=== PATIENT | female | born 1995 | race Caucasian/White ===

== ENCOUNTER 2024-08-28 15:24 | Emergency (ER) | payer MEDICAID, SELFPAY ==
[2024-08-28 15:31] VITALS: BP 128/90
[2024-08-28 15:35] VITALS: BP 130/88
--- NOTE | 2024-08-28 17:18 | ED.GENMED ---
History of Present Illness
General
Chief Complaint: Problems
Source: patient and spouse
Exam Limitations: none
Time Seen by Provider: 08/28/24 17:05
Nursing documentation reviewed up to this point in time: agreed with
History of Present Illness
History of Present Illness:
28-year-old female with no significant chronic medical issues presents to the emergency room accompanied by her for evaluation of vaginal bleeding and lower abdominal pain. Patient is notably 2-1/2 months out from complicated ; she
received her care in [place], recently moved to the area here. She gave to twins, delivered at 35 weeks via due to preeclampsia/HELLP syndrome. Delivery was complicated by hemorrhage (patient says of approximately 2L of
blood) and abnormal LFTs and hypertension�patient was admitted for 10 days postdelivery. Since discharge from the hospital patient says she has been doing well; she has not been on any medication for blood pressure. She is working to establish
care with PCP and [facility] here in the area has not yet seen anyone. She had her first menstrual period at the end of June and it was normal. She says that 2 days ago she started bleeding once again however bleeding has been much
heavier than usual. She says that she is saturating 1-2 tampons an hour over the past few days. She says she is also having bxar-nqztyoa-[id number]-typical lower abdominal cramping associated with current menstrual period. She says that she started to
feel dizzy and was concerned that she was losing too much blood especially in light of her recent complicated delivery and so she came to the emergency to be evaluated. She denies any chest pain or shortness of breath. She has not had any fever or
chills. She has not had any vomiting or any other issues.
Review of Systems
Review of Systems
All Other Systems: ROS reviewed and negative except as documented in HPI and ROS
Constitutional: Reports fatigue; Denies fever or chills
Respiratory: Denies cough or trouble breathing
Cardiac: Denies chest pain or palpitations
ABD/GI: Reports abdominal pain; Denies nausea or vomiting
: Reports bleeding; Denies flank pain
Musculoskeletal: Denies neck pain or back pain
Neurological: Reports dizzy and headache; Denies weakness or numbness
Phy Exam
Physical Exam
Physical Exam:
General: Awake, alert, oriented x3; no acute distress
Head: Normocephalic, atraumatic
Eyes: Conjunctiva normal, sclera anicteric
Throat: Airway intact, handling secretions
Neck: Trachea midline, supple without meningismus
Lungs: Clear to auscultation bilaterally, no wheezing, rales, rhonchi
Heart: Regular rate and rhythm, no murmurs, gallops, or rubs
Abd: Soft, non distended, tender to palpation suprapubic region
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
appreciated
Back: No CVA tenderness
Neuro: No gross deficit
Skin: no rash
Extremities: No edema in extremities, equal pulses in all extremities
Scores
Heart Failure Risk
Heart Failure Risk Score: Not Applicable
Heart Score for Chest Pain Patients
STEMI patient?: Not applicable
Withdrawal Assessment of Alcohol
Withdrawal Assessment Completed?: Not applicable
Course
Orders/Labs/Results
Orders:
Orders
08/28/24 17:18
US Pelvis Only (non-obstetric) Urgent
Reason For Exam: lower abd pain, vaginal bleeding
08/28/24 17:29
Type+Screen Urgent
Complete Blood Count/With Diff Urgent
Comprehensive Metabolic Panel Urgent
HCG, Beta Quantitative [Beta HCG Quantitative] Urgent
Is this a screen?: No
08/28/24 17:34
0.9% Sodium Chloride 1000 ml [Nss] 1,000 ml IV BOLUS
Acetaminophen [Tylenol] 1,000 mg PO NOW STA
08/28/24 21:20
Ketorolac [Toradol] 15 mg IV NOW STA
Abnormal Lab Results
08/28/24
17:29
Hct 36.7 L %
(37.0-47.0)
Absolute Monos (auto) 0.7 H 10^3/uL
(0.1-0.6)
Lymphocytes % 17.5 L %
(20.5-51.1)
Eosinophils % 6.9 H %
(0-6)
ALT 61 H U/L
(0-35)
08/28/24 17:29
08/28/24 17:29
Vital Signs
Initial and Last Documented VS:
Initial Vital Signs
Temp Pulse Resp BP Pulse Ox
36.8 C 85 16 128/90 99
08/28/24 15:31 08/28/24 15:31 08/28/24 15:31 08/28/24 15:31 08/28/24 15:31
Last Documented Vital Signs
Temp Pulse Resp BP Pulse Ox
36.8 C 75 16 122/83 99
08/28/24 15:31 08/28/24 18:00 08/28/24 17:31 08/28/24 18:00 08/28/24 15:35
Information
Weeks gestation: N/A
Location: N/A
MDM/Problems Addressed
Differential Diagnosis Includes:
Fibroid uterus, ectopic , miscarriage, dysfunctional menstrual bleeding
MDM/Problems Addressed:
28-year-old female presents for evaluation of vaginal bleeding abdominal cramping�she is currently in the midst of her second menstrual period since complicated delivery in May and is having heavier than usual bleeding and increased cramping
compared to normal. Vitals and exam as above. Will check labs including a CBC and a CMP, type and screen. Check an hCG. Will send for pelvic ultrasound. Monitor on telemetry and reassess after the above.
Labs reviewed: CBC unremarkable including normal hemoglobin of 12.5. CMP no clinically significant abnormalities. hCG negative. Pelvic ultrasound unremarkable. Vital stable throughout ER observation. Stable for discharge, referral to [facility] for
outpatient follow-up. Patient comfortable this plan. All questions answered.
*Radiology
Radiology exam reviewed: radiology read reviewed
*Pulse Oximetry
Patient hypoxic: no
*Critical Care Note
Total Time (30-74mins, 75-104mins- exclusive of procedures): Not Applicable
Data Reviewed
Source: patient and spouse
ED Attending Note
-
Portions of this chart may have been created with voice recognition software.� Occasional wrong word or��sound alike� substitutions may have occurred due to the inherent limitations of voice recognition software.
Discharge Plan
Departure
Patient Disposition: Home (Routine Discharge)
Date of Disposition: 08/28/24
Time of Disposition: 21:12
Patient with high blood pressure during this ER visit?: No
Discharge Problem:
Vaginal bleeding
Instructions: Heavy Periods ED
Referrals:
Marilin Sanchez MD [Family Provider] -
Tapan Nair MD [Active] - Call in 1-3 days for appt
Activity Restrictions/Additional Instructions:
Thank you for visiting the Emergency Department at [facility].
1. Please schedule a follow up appointment as directed. Call first thing tomorrow morning to make an appointment.
2. If indicated, please take your medications as instructed and indicated on discharge paperwork.
3. If any of your symptoms do not improve, or persist, or become more severe within 6-12 hours, please return to the emergency department for further care.
4. Please return to the emergency department if you develop a headache, neck pain/stiffness, fever greater than 100.4F, chest pain, shortness of breath, persistent nausea, vomiting, slurred speech, difficulty walking, numbness/tingling, weakness,
signs of infection or any other symptoms that are worrisome to you.
Please call [phone] if you have any questions.
Interventions
Interventions:
*Risk Screen - Suicide Last Done: 08/28/24 15:31
*General Assessment Last Done: 08/28/24 17:47
*Neglect/Abuse Screening Last Done: 08/28/24 15:31
ED- Fall Risk Assessment Last Done: 08/28/24 17:48
*ED COVID-19 Vaccine History Last Done: 08/28/24 17:47
*Nursing Disposition Last Done: 08/28/24 22:00
ED-Female Genitourinary Assessment Last Done: 08/28/24 17:48
Discharge Date and Time
Discharge Date/Time: 08/28/24 22:01
Print Language: KAZAKH
[2024-08-28 17:31] VITALS: BP 123/96
[2024-08-28 17:38] LABS: % Basophils 0.6 % (0-2); % Eosinophils 6.9 % (0-6); % Immature Granulocytes 0.1 % (0-0.5); % Lymphocytes 17.5 % (20.5-51.1); % Monocytes 8.7 % (1.7-9.3); % Neutrophils 66.2 % (42.2-75.2); Absolute Basophils 0.1 10^3/uL (0-0.2); Absolute Eosinophils 0.5 10^3/uL (0-0.7); Absolute Lymphocytes 1.4 10^3/uL (1.2-3.4); Absolute Monocytes 0.7 10^3/uL (0.1-0.6); Absolute Neutrophils 5.2 10^3/uL (1.4-6.5); Hematocrit 36.7 % (37.0-47.0); Hemoglobin 12.5 g/dL (12.0-16.0); Mean Corp Hgb Conc. 34.1 g/dL (33.0-37.0); Mean Corpuscular Hgb 27.7 pg (27.0-31.0); Mean Corpuscular Volume 81.2 fL (81.0-99.0); Mean Platelet Volume 9.9 fL (7.4-10.4); Nucleated Red Blood Cells % 0 %; Platelet Count 199 10^3/uL (130-400); Red Blood Cell Count 4.52 10^6/uL (4.20-5.40); Red Cell Dist. Width 14.5 % (11.5-14.5); White Blood Cell Count 7.8 10^3/uL (4.8-10.8)
[2024-08-28] MEDS: NSS 1000 IV (17:42)
[2024-08-28] MEDS: TYLENOL 1000 MG PO (17:43)
[2024-08-28 17:46] VITALS: BP 123/96; BMI 36.7
[2024-08-28 17:50] LABS: ALT (SGPT) 61 U/L (0-35); AST (SGOT) 28 U/L (14-36); Albumin 4.8 g/dl (3.5-5.0); Alkaline Phosphatase 62 U/L (38-126); Blood Urea Nitrogen 16 mg/dl (7-17); Calcium 9.5 mg/dl (8.4-10.2); Carbon Dioxide 27 mmol/L (22-30); Chloride 101 mmol/L (98-107); Estimated Creatinine Clearance > 125 ml/min; Glucose 85 mg/dl (70-99); Potassium 4.3 mmol/L (3.5-5.1); Sodium 143 mmol/L (135-145); Total Bilirubin 0.3 mg/dl (0.2-1.3); Total Protein 7.7 g/dl (6.3-8.2); eGFR > 60.00
[2024-08-28 18:00] VITALS: BP 122/83
[2024-08-28 18:06] LABS: Beta HCG Quantitative < 2.39 mIU/ml
[2024-08-28] MEDS: TORADOL 15 MG IV (21:31)
== END 2024-08-28 22:01 | disposition home or self-care (01) ==
LOC: EMR 15:24
PROVIDERS: EMERGENCY PHYSICIAN Emergency Medicine; FAMILY PHYSICIAN Hospitalist
DX: N93.9 Abnormal uterine and vaginal bleeding, unspecified (principal); R10.30 Lower abdominal pain, unspecified; R42 Dizziness and giddiness; R51.9 Headache, unspecified; R53.83 Other fatigue; Z88.0 Allergy status to penicillin
CPT/HCPCS: 99284; 96374; 96361; 76856; 80053; 84702; 85025; 86850; 86900; 86901

== ENCOUNTER → 2025-05-14 17:21 | Outpatient (REF) | payer OTHER, SELFPAY ==
[2025-05-14 18:06] LABS: Hematocrit 38.5 % (37.0-47.0); Hemoglobin 12.5 g/dL (12.0-16.0); Mean Corp Hgb Conc. 32.5 g/dL (33.0-37.0); Mean Corpuscular Volume 86.3 fL (81.0-99.0); Nucleated Red Blood Cells % 0 %; Platelet Count 249 10^3/uL (130-400); Red Cell Dist. Width 12.7 % (11.5-14.5)
[2025-05-14 18:09] LABS: INR 0.95; PT 13.1 Sec (11.4-14.6)
[2025-05-14 18:10] LABS: APTT 24.9 Sec (23.4-35.0)
[2025-05-14 18:19] LABS: Total Protein 7.9 g/dl (6.3-8.2)
[2025-05-17 04:53] LABS: HSV 1/2 Combined Screen, IgG 3.69 IV
[2025-05-19 08:01] LABS: Albumin 4.26 g/dL (3.75-5.01); SPEP IFE Reflex Not Done; Total Protein-Electrophoresis 7.5 g/dL (6.3-8.2)
== END ==
LOC: REG 17:21
PROVIDERS: ATTENDING PHYSICIAN Psychiatry & Neurology Neurology
DX: R51.9 Headache, unspecified (principal)
CPT/HCPCS: 36415; 84155; 84165; 85025; 85610; 85730; 86694; 86695; 86696

== ENCOUNTER 2025-05-20 12:49 | Emergency (ER) | payer MEDICARE, SELFPAY ==
[2025-05-20 12:50] VITALS: BP 156/94
[2025-05-20] MEDS: BENADRYL 25 MG IV (14:18)
[2025-05-20] MEDS: NSS 1000 IV (14:18)
[2025-05-20] MEDS: REGLAN 10 MG IV (14:18)
[2025-05-20 14:22] LABS: Hematocrit 38.8 % (37.0-47.0); Hemoglobin 12.8 g/dL (12.0-16.0); Mean Corp Hgb Conc. 33.0 g/dL (33.0-37.0); Mean Corpuscular Volume 86.8 fL (81.0-99.0); Nucleated Red Blood Cells % 0 %; Platelet Count 252 10^3/uL (130-400); Red Cell Dist. Width 12.7 % (11.5-14.5)
[2025-05-20 14:55] LABS: HCG, Serum Qualitative Screen Negative
[2025-05-20 15:00] LABS: Blood Urea Nitrogen < 2 mg/dl (7-17); Calcium 9.3 mg/dl (8.4-10.2); Carbon Dioxide 26 mmol/L (22-30); Glucose 91 mg/dl (70-99); eGFR > 60.00
[2025-05-20 15:07] LABS: Chloride 108 mmol/L (98-107); Potassium 4.3 mmol/L (3.5-5.1); Sodium 140 mmol/L (135-145)
[2025-05-20] MEDS: FIORICET 2 TAB PO (15:32)
[2025-05-20] MEDS: TORADOL 15 MG IV (15:33)
--- NOTE | 2025-05-20 16:08 | ED.GENMED ---
History of Present Illness
General
Chief Complaint: Headache
Source: patient and spouse
Time Seen by Provider: 05/20/25 13:55
History of Present Illness
History of Present Illness:
Note:
CHIEF COMPLAINT(S)
Persistent headache following a lumbar puncture.
HISTORY OF PRESENT ILLNESS
The patient is a 29-year-old female with a recent history of lumbar puncture performed to evaluate suspected idiopathic intracranial hypertension (IIH). She reports that since the procedure conducted at the [facility], she has
experienced a persistent migraine headache. The headache began as soon as she got into the car after leaving the procedure, around 11:00 AM, and has been constant. She describes the pain as starting from the base of the skull extending to the neck,
with exacerbation upon standing, bending, or any movement, suggesting a post-lumbar puncture headache. The patient states the headache is constant whether she is lying flat or sitting up. She denies any fever, motor weakness, numbness, tingling, or
visual changes. Prior to the lumbar puncture, her headaches were intermittently on and off.
The patient has a history of migraines and had been on topiramate 50 mg, which was recently increased from 25 mg. She also uses sumatriptan orally for acute migraine relief. These treatments have had limited success in ameliorating her current
symptoms, despite caffeine intake and rest. The patient is under the care of Neurology at [facility], scheduled to discuss lumbar puncture results and further management on the .
Additional historian
her states that her opening pressure was 20 on her LP
PHYSICAL EXAM
General: Alert, oriented, no acute distress.
Skin: Warm, dry.
Head: Normocephalic, atraumatic.
Neck: Supple, trachea midline.
Eyes, ears, nose, mouth, and throat: Pupils equal and reactive to light, oral mucosa moist.
Cardiovascular: Heart regular, no murmur noted, normal peripheral perfusion.
Respiratory: Lungs clear upon auscultation, respirations non-labored.
Gastrointestinal: Abdomen nondistended.
Back: Normal range of motion, normal alignment.
Musculoskeletal: Normal range of motion, normal strength.
Neurological: Cooperative, appropriate mood and affect, alert and oriented to person, place, time, and situation, no neurological deficits.
PROBLEM LIST
Acute:
- Chronic migraine headache post-lumbar puncture
- Possible spinal headache
PLAN
1. Administer intravenous fluids and a caffeine product (such as Fioricet) to attempt relief of the headache.
2. Monitor patient�s response to the treatment with plans to reassess after initial medication administration.
3. Discuss with the patient the possibility and implications of a blood patch as an intervention if symptoms persist, while noting that it is invasive and typically considered after conservative measures.
4. Advise the patient to follow up with her neurologist as scheduled for further evaluation of lumbar puncture results and comprehensive management.
5. Encourage consistent rest in a supine position to alleviate symptoms.
DIFFERENTIAL DIAGNOSIS
The Differential Diagnosis includes, in no particular order and is not limited to:
- Post-lumbar puncture headache
- Migraine headache
- Tension-type headache
- Intracranial hypotension
- Sinus headache
- Cervicogenic headache
- Cluster headache
- Subarachnoid hemorrhage (unlikely given clinical presentation)
- Meningitis (unlikely given absence of fever and neck stiffness)
- Secondary causes of headache due to underlying systemic conditions
CARE-UPDATE
05/20/25 - 15:03
The patient reports improvement in condition. Cell counts from the consultants evaluation showed no concern for infection. The plan is to continue monitoring and managing symptoms, including caffeine and Toradol for headache relief. There is a
discussion of a potential spinal fluid leak causing the headache. If symptoms persist, considering a blood patch is possible, though currently not ideal due to procedural risks. The patient experiences no headache while lying flat, and ongoing
symptom relief will determine discharge readiness.
Disposition:
SUMMARY OF ENCOUNTER
The patient was evaluated in the emergency department for persistent headache following a recent lumbar puncture, performed to assess suspected idiopathic intracranial hypertension. The headache started immediately post-procedure and has been
constant, exacerbating with movement and somewhat relieved by lying flat. Medications administered in the emergency department provided some relief. Neurological assessment was normal, and given the improvement with medication, a spinal headache and
blood patch intervention were considered but deemed unnecessary at this time.
DISPOSITION
Discharge.
ASSESSMENT
Persistent headache post-lumbar puncture, improving with medication; no current need for blood patch. Symptoms suggest a possible spinal headache, but improvement with treatment suggests conservative management at home is appropriate.
EMERGENCY TREATMENTS ADMINISTERED
Medications administered to relieve headache.
MANAGEMENT OF THE PATIENTS CARE WAS DISCUSSED WITH
Further history was provided by the at bedside.
PLAN
Recommend continued headache management at home. Return to or consult with the [facility] if symptoms become more clearly positional or postural. Ensure follow-up with neurology as previously scheduled.
PATIENT EDUCATION AND COUNSELING
Advised the patient to monitor headache symptoms and continue management at home. If symptoms worsen or change to become more positional, return to the hospital, especially at the [facility] where the lumbar puncture was performed.
FOLLOW-UP INSTRUCTIONS
Follow up as previously scheduled with neurology for comprehensive management and discussion of lumbar puncture results.
MEDICATION RECONCILIATION
Medications for headache relief provided during the visit, given Reglan, Benadryl, Toradol and Fioricet
MEDICAL DECISION MAKING
- Complexity of Data Reviewed: Chronic conditions affecting care [Chronic migraine headache]. Differential diagnoses include: post-lumbar puncture headache, migraine headache, tension-type headache, intracranial hypotension, sinus headache,
cervicogenic headache, cluster headache.
- Data:
- Category 2: Additional history was obtained from the patients .
- Risk: Prescription medication was prescribed for headache management. Consideration of treatment escalation was made, but ultimately home management was preferred due to symptom improvement.
DIAGNOSIS
Headache post-lumbar puncture (ICD-10: G97.1), headache without aura
Phy Exam
Physical Exam
Physical Exam:
.
Course
Orders/Labs/Results
Orders:
Orders
05/20/25 14:05
0.9% Sodium Chloride 1000 ml [Nss] 1,000 ml IV BOLUS
Diphenhydramine [Benadryl] 25 mg IV NOW STA
Metoclopramide [Reglan] 10 mg IV NOW STA
05/20/25 14:06
Test Result ONCE
05/20/25 14:17
Basic Metabolic Panel Urgent
Complete Blood Count/With Diff Urgent
HCG, Serum Qualitative Screen Urgent
05/20/25 15:21
Butalb/Acetaminophen/Caffeine [Fioricet] 2 tab PO NOW STA
Ketorolac [Toradol] 15 mg IV NOW STA
Abnormal Lab Results
05/20/25
14:17
Chloride 108 H mmol/L
(98-107)
BUN < 2 L mg/dl
(7-17)
05/20/25 14:17
05/20/25 14:17
Vital Signs
Initial and Last Documented VS:
Initial Vital Signs
Temp Pulse Resp BP Pulse Ox
98.2 F 71 16 156/94 99
05/20/25 12:50 05/20/25 12:50 05/20/25 12:50 05/20/25 12:50 05/20/25 12:50
Last Documented Vital Signs
Temp Pulse Resp BP Pulse Ox
98.2 F 71 16 156/94 99
05/20/25 12:50 05/20/25 12:50 05/20/25 12:50 05/20/25 12:50 05/20/25 12:50
*Pulse Oximetry
SaO2: 99
Oxygen Mode of Delivery: Room air
Patient hypoxic: no
*Critical Care Note
Total Time (30-74mins, 75-104mins- exclusive of procedures): Not Applicable
Data Reviewed
Review of Other/Old Records Reveals: Labs (CSF results reviewed showing no white cells)
ED Attending Note
-
Portions of this chart may have been created with voice recognition software.� Occasional wrong word or��sound alike� substitutions may have occurred due to the inherent limitations of voice recognition software.
Discharge Plan
Departure
Patient Disposition: Home (Routine Discharge)
Date of Disposition: 05/20/25
Time of Disposition: 16:09
Patient with high blood pressure during this ER visit?: Yes
Discharge Problem:
Headache
Instructions: Headache, Adult (DC), BLOOD PRESSURE
Activity Restrictions/Additional Instructions:
Please rest and drink plenty of fluids. Please continue your headache regimen but add Excedrin every 6-8 hours as needed for the next 2 days. Return immediately for fevers, worsening headache with standing, neck stiffness or any other concerns.
Please see your neurologist in follow-up in the next 3 to 5 days
Interventions
Interventions:
*Risk Screen - Suicide Last Done: 05/20/25 12:52
*Neglect/Abuse Screening Last Done: 05/20/25 12:52
Discharge Date and Time
Print Language: [id number]
[2025-05-20 16:43] VITALS: BP 124/74
== END 2025-05-20 16:44 | disposition home or self-care (01) ==
LOC: EMR 12:49
PROVIDERS: EMERGENCY PHYSICIAN Emergency Medicine; FAMILY PHYSICIAN Internal Medicine
DX: G97.1 Other reaction to spinal and lumbar puncture (principal); G43.909 Migraine, unspecified, not intractable, without status migrainosus
CPT/HCPCS: 96374; 96375; 96361; 99284; 80048; 84703; 85025